=== PATIENT | male | born 1945 | race Caucasian/White ===

== ENCOUNTER 2017-07-29 11:41 | Day surgery (SDC) | payer MEDICARE, OTHER ==
[~2017-07-29 11:41] MED LIST: BUPIVACAINE HCL 0.75% INJ/PF (7.5 MG/1 ML) 10 ML SDV OD PRN; KETOROLAC TROMETHAMINE 0.45% 4 DROP/0.4 ML DROPERETTE OD PRN; LIDOCAINE 4% INJ/PF (40 MG/ML) 5 ML AMPUL OD PRN
[2017-07-29] MEDS: TETRACAINE HCL 0.5% OPH SOLN 0.6 ML DROPERETTE OD PRN ×2 (12:00→12:22)
[2017-07-29] MEDS: BESIFLOXACIN HCL 0.6% OPH SUSP 5 ML BOTTLE OD PRN ×2 (12:01→12:22)
[2017-07-29] MEDS ORDERED: MIDAZOLAM 2 MG/2 ML INJ ONE (12:11)
[2017-07-29] MEDS ORDERED: TOBRAMYCIN SULFATE/DEXAMETH OPH OINTMENT 3.5 GM ONE (12:20)
[2017-07-29] MEDS ORDERED: TETRACAINE HCL 0.5% OPH SOLN 2 ML ONE (12:20)
[2017-07-29] MEDS ORDERED: POVIDONE-IODINE 5% OPH PREP SOLN 30 ML ONE (12:20)
[2017-07-29] MEDS ORDERED: LIDOCAINE 1.5%/EPINEPHRINE INJ-PF 30 ML SDV ONE (12:20)
[2017-07-29] MEDS ORDERED: BALANCED SALT IRRIG SOLN COMB2 15 ML BOTTLE ONE (12:22)
[2017-07-29] MEDS ORDERED: LIDOCAINE 2%/EPINEPHRINE INJ 20 ML VIAL ONE (12:22)
[2017-07-29] MEDS ORDERED: LIDOCAINE 1%/EPINEPHRINE INJ 20 ML VIAL ONE (12:25)
--- NOTE | 2017-08-22 10:17 | [facility] OPERATIVE REPORT E ---
[facility] NAME: ALESSANDRO RUIZ AGE: 72Y DATE OF SURGERY: 07/29/2017 ROOM: PREOPERATIVE DIAGNOSIS: Conjunctival cyst, right eye. POSTOPERATIVE DIAGNOSIS: Conjunctival cyst, right eye. PROCEDURE PERFORMED: Excision of conjunctival cyst, right eye. SURGEON: MARIEBL MACK M.D. ANESTHESIA: Local topical with MAC. INDICATIONS FOR SURGERY: Patient has a large conjunctival cyst which he feels with blinking causing continual irritation. PROCEDURE: The patient was brought to the operating room and the right eye was sterilely prepped and draped in the usual manner. Tetracaine drops were placed in the eye. Local anesthesia was administered around the area of the 7 mm temporal conjunctival cyst. This consisted of 2% Xylocaine with epinephrine. This was injected underneath and around the cyst. The cyst was excised using Shelley scissors. The conjunctiva was undermined and reapproximated using a combination of interrupted and running Vicryl sutures, burying the knots. There was good closure and hemostasis. A slight amount of bipolar cautery was used prior to suturing the lesion. Maxitrol ointment was placed in the eye. The patient tolerated the procedure well and was sent to the recovery room in good condition. DICTATING PHYSICIAN: MARIBEL MACK M.D. [id number] Y#: [id number] ID: [id number] JOB#: [id number] ACCT: [id number] cc:MARIBEL MACK M.D. >
--- NOTE | 2017-08-22 10:18 | [facility] DISCHARGE SUMMARY E ---
[facility] Discharge Summary NAME: ALESSANDRO RUIZ AGE: 72Y ADMITTED: 07/29/2017 DISCHARGED: 07/29/2017 FINAL DIAGNOSIS: Conjunctival cyst, right eye. HOSPITAL COURSE: The patient is a 72-year-old gentleman who underwent uneventful excision of conjunctival cyst, right eye, on 07/29/2017. He will be discharged to home. He was instructed to keep his eye patched overnight and to follow up in my office in 1 day. DICTATING PHYSICIAN: MARIBEL MACK M.D. [id number] PHY#: [id number] ID: [id number] JOB#: [id number] ACCT: [id number] cc:MARIBEL MACK M.D. >
== END 2017-07-29 13:50 | disposition home or self-care (01) ==
LOC: SC 11:41
PROVIDERS: ATTEND Ophthalmology
DX: H11.441 Conjunctival cysts, right eye (principal); I10 Essential (primary) hypertension; E78.00 Pure hypercholesterolemia, unspecified; M19.90 Unspecified osteoarthritis, unspecified site; H35.3131 Nonexudative age-related macular degeneration, bilateral, early dry stage; H25.813 Combined forms of age-related cataract, bilateral; D31.32 Benign neoplasm of left choroid; H04.123 Dry eye syndrome of bilateral lacrimal glands; H43.813 Vitreous degeneration, bilateral; Z85.828 Personal history of other malignant neoplasm of skin
CPT/HCPCS: 68110; J2250; J3490 ×6; A9270; 140